=== PATIENT | female | born 1995 | race Caucasian/White ===

== ENCOUNTER 2019-06-30 15:23 | Emergency (ER) | payer MEDICAID ==
[~2019-06-30] VITALS: Ht 160 cm; Wt 59.0 kg
--- NOTE | 2019-06-30 15:29 | NUR ---
Patient to ER bed 8 to gown for evaluation. Side rails up. Report given to REDD Gan.
[2019-06-30 15:30] VITALS: BP_SYST 129
--- NOTE | 2019-06-30 15:32 | NUR ---
Pt brought by self, A&Ox4, pt presents to ER with dogbite on R index finger and R hand, pt afebrile ,bleeidng controlled, cap refill <3.
--- NOTE | 2019-06-30 15:40 | NUR ---
Dr Tovar at bedside examining patient
[2019-06-30] MEDS ORDERED: DIPH-TET-PERTUS Vaccine 0.5 ML VIAL (ADACEL) IM ONE (15:45)
[2019-06-30] MEDS ORDERED: BACITRACIN 1 GM OINT TP ONE (15:45)
[2019-06-30 16:50] VITALS: BP_SYST 129
--- NOTE | 2019-06-30 16:50 | NUR ---
Patient given verbal discharge instructions and verbalizes understanding. Pt did not wait for written instructions ER MD discussed with patient the results and treatment provided. Patient in stable condition. ID arm band removed. Rx of Augmentin , Motrin and Bacitracin given. Patient educated on pain management and to follow up with PMD. Pain Scale 2/10 tolerable for pt. Opportunity for questions provided and answered. Medication side effect fact sheet provided.
--- NOTE | 2019-06-30 17:00 | NUR ---
Called patient to let her know she needs to hand picker discharge ppwk and prescriptions, pt states she is on her way to hand picker prescriptions.
== END 2019-06-30 16:50 | disposition home or self-care (01) ==
LOC: SED 15:23
DX: S61.230A Puncture wound without foreign body of right index finger without damage to nail, initial encounter (principal); W54.0XXA Bitten by dog, initial encounter; Y93.89 Activity, other specified; Y92.89 Other specified places as the place of occurrence of the external cause; Y99.8 Other external cause status
CPT/HCPCS: 90715; 99283